=== PATIENT | female | born 1970 | race Caucasian/White ===

== ENCOUNTER 2017-05-07 09:22 | Emergency (ER) | payer MEDICAID ==
[~2017-05-07] VITALS: Ht 157.5 cm; Wt 93.1 kg
[2017-05-07 10:32] VITALS: BP 188/116
== END 2017-05-07 11:10 | disposition home or self-care (01) ==
LOC: ED 10:03
DX: B37.89 Other sites of candidiasis (principal); I10 Essential (primary) hypertension; Z86.73 Personal history of transient ischemic attack (TIA), and cerebral infarction without residual deficits
CPT/HCPCS: 93005; 99283